=== PATIENT | female | born 1990 | race American Indian/Alaskan Native ===

== ENCOUNTER 2018-02-22 02:32 | Inpatient (IN) | payer OTHER ==
[2018-02-22] MEDS ORDERED: LACTATED RINGERS 1,000 ML ONE (04:00)
[2018-02-22] MEDS ORDERED: LACTATED RINGERS 1,000 ML IV ONE (04:18)
[2018-02-22] MEDS ORDERED: SUBLIMAZE IV ONE ×2 (04:18→07:35)
[2018-02-22] MEDS ORDERED: SUBLIMAZE ONE (04:20)
[2018-02-22] MEDS ORDERED: XYLOCAINE 2% INFILTRATI ONE (05:51)
[2018-02-22] MEDS ORDERED: BRETHINE IVP PRN (05:51)
[2018-02-22] MEDS ORDERED: BRETHINE SUB-Q PRN (05:51)
--- NOTE | 2018-02-22 05:59 | History and Physical Report ---
History of Present Illness Date of examination: 02/22/18 Date of admission: 02/22/2018 Chief complaint: Contractions/labor. History of present illness: 27 year old presents to L&D with complaint of regular contractions. Patient denies vaginal bleeding or leaking of fluid. Patient states she has received regular care at [facility]. No records are available. Previous section at term with her last baby 7 years ago ( patient states the C/S was done for abnormal heart rate tracing). Patient denies any complications with the current . Patient denies any health problems. She states the C/S 7 years ago was the only surgery she has ever had. Current medications: Vitamins. NKDA. Patient states she does not smoke cigarettes, drink alcohol, or use drugs. She states her EDC is 02/28/18. labs were drawn on admission. Past History Past Medical History: no pertinent history Past Surgical History: section [facility] History: gonorrhea (patient reports history of gonorrhea several months ago which was treated and cured). denies: abnormal PAP smear, chlamydia, hepatitis B, hepatitis C, herpes, HIV, syphilis, trichomonas Family/Genetic History: none Social history: lives with family, full code. denies: smoking, alcohol abuse, IV drug use - Obstetrical History Expected Date of Delivery: 02/28/18 Actual Gestation: 39 Week(s) 1 Day(s) : 3 Para: 1 Hx # Term Pregnancies: 2 Number of Pregnancies: 0 Spontaneous Abortions: 1 Induced : 0 Number of Living Children: 1 Medications and Allergies Allergies Allergy/AdvReac Type Severity Reaction Status Date / Time No Known Allergies Allergy Unverified 02/22/18 04:16 Active Meds: Active Medications Ephedrine Sulfate (Ephedrine Sulfate) 10 mg IV Q2M PRN PRN Reason: Hypotension Ampicillin Sodium (Polycillin/Ns 2 Gm/100 Ml) 2 gm in 100 mls @ 100 mls/hr IV ONCE ONE; Protocol Stop: 02/22/18 06:50 Lactated Ringer's (Lactated Ringers) 1,000 mls @ 125 mls/hr IV DIRECT BRADY Oxytocin/Sodium Chloride (Pitocin/Ns 20 Unit/1000ml Drip) 20 units in 1,000 mls @ 125 mls/hr IV DIRECT BRADY Ampicillin Sodium (Ampicillin/Ns 1 Gm/50 Ml) 1 gm in 50 mls @ 100 mls/hr IV Q4HR BRADY; Protocol Lidocaine (Xylocaine 2%) 20 ml INFILTRATI ONCE ONE Stop: 02/22/18 05:52 Terbutaline Sulfate (Brethine) 0.25 mg SUB-Q ONCE PRN PRN Reason: Hyperstimulation/Hypertonicity Terbutaline Sulfate (Brethine) 0.25 mg IVP ONCE PRN PRN Reason: Hyperstimulation/Hypertonicity Review of Systems All systems: negative (contractions) - Vital Signs Vital signs: Vital Signs Pulse Pulse Ox 81 97 02/22/18 02:53 02/22/18 02:53 Temp Pulse Resp BP Pulse Ox 73 18 97 02/22/18 03:13 02/22/18 04:30 02/22/18 03:13 - Physical Exam Cardiovascular: Regular rate, Normal S1, Normal S2 Lungs: Positive: Clear to auscultation Abdomen: Positive: normal appearance, soft. Negative: distention, tenderness, guarding, rigidity Genitourinary (Female): Positive: normal external genitalia, normal perenium. Negative: perineal/vulvar lesions Vagina: Positive: other (clear fluid leaking from vagina/spontaneous rupture of membranes at 05:18) Uterus: Positive: enlarged. Negative: tender Extremities: Positive: normal. Negative: tenderness - Obstetrical FHR: category 2 FHR comments: Normal baseline FHR, moderate variability, occasional variable FHR deceleration with rapid return to baseline. Uterine Contraction Monitor Mode: External Cervical Dilatation: 3 Cervical Effacement Percentage: 95 station: -2 Uterine Contraction Pattern: Regular Uterine Contraction Intensity: Moderate Results All other labs normal. Assessment and Plan A: at 39 weeks, 1 day gestation. Active labor. Spontaneous rupture of membranes. Unknown GBS due to no records available. P: Admit. GBS prophylaxis. Epidural if desired. Notified Dr. Iglesias of patient's exam and status and desire for TOLAC. Dr. Iglesias is en route to hospital. Continuous EFM.
[2018-02-22] MEDS ORDERED: PITOCin/NS 20 UNIT/1000ML DRIP 20 UNITS/1,000 ML BAG IV SCH (06:00)
[2018-02-22] MEDS ORDERED: POLYCILLIN/NS 2 GM/100 ML 2 GM/100 ML BAG IV ONE (06:00)
[2018-02-22] MEDS ORDERED: LACTATED RINGERS 1,000 ML IV SCH (06:00)
[2018-02-22 06:28] LABS: Hematocrit 38.8 % (30.3-42.9); Hemoglobin 13.4 gm/dl (10.1-14.3); Mean Corpuscular HGB Conc 35 % (30-34); Mean Corpuscular Hemoglobin 29 pg (28-32); Mean Corpuscular Volume 84 fl (79-97); Platelet Count 172 K/mm3 (140-440); Red Blood Count 4.64 M/mm3 (3.65-5.03); Red Cell Distribution Width 12.8 % (13.2-15.2)
[2018-02-22] MEDS ORDERED: ZOFRAN IV ONE (06:43)
[2018-02-22 07:09] LABS: Hepatitis C Virus Antibody Non-Reactive (NonReactive)
[2018-02-22] MEDS ORDERED: ZOFRAN IV PRN ×2 (07:36→10:06)
[2018-02-22 07:49] LABS: Rubella IgG Antibody Immune (Immune)
[2018-02-22] MEDS ORDERED: NARCAN 2 MG/2 ML IV PRN (08:18)
[2018-02-22] MEDS ORDERED: fentaNYL-BUPIV 2 MCG/ML-0.125% 200 MCG/100 ML BAG EPIDURAL SCH (09:00)
[2018-02-22] MEDS ORDERED: AMPICILLIN/NS 1 GM/50 ML 1 GM/50 ML BAG IV SCH (10:00)
[2018-02-22] MEDS ORDERED: DULCOLAX PR PRN (10:06)
[2018-02-22] MEDS ORDERED: BENADRYL PO PRN (10:06)
[2018-02-22] MEDS ORDERED: MILK OF MAGNESIA PO PRN (10:06)
[2018-02-22] MEDS ORDERED: TUCKS PAD TP PRN (10:06)
[2018-02-22] MEDS ORDERED: PHENERGAN PO PRN (10:06)
[2018-02-22] MEDS ORDERED: TYLENOL PO PRN (10:06)
[2018-02-22] MEDS ORDERED: LANSINOH TP PRN (10:06)
[2018-02-22] MEDS ORDERED: PHENERGAN PR PRN (10:06)
[2018-02-22] MEDS ORDERED: SODIUM CHLORIDE FLUSH SYRINGE 10 ML IV NR (11:00)
[2018-02-22] MEDS: MOTRIN PO SCH ×3 (11:07→23:09)
--- NOTE | 2018-02-22 12:08 | Procedure Note ---
OB Delivery Note - Delivery Date of Delivery: 02/22/18 Surgeon: ALEXSANDER DUNBAR Estimated blood loss: other (250) - Vaginal Delivery presentation: vertex Delivery position: OA Intrapartum events: other(please specify) () Delivery induction: none Delivery monitor: external FHT, external uterine Route of delivery: Delivery placenta: spontaneous Delivery cord: 3 umbilical vessels Episiotomy: none Delivery laceration: none Anesthesia: epidural Delivery comments: Spontaneous vaginal delivery of liveborn male weighing 6 lb. 13 oz. over intact perineum with apgars of 8/9. Nuchal cord times 1; easily reduced. Epidural anesthesia. Baby placed immediately on maternal abdomen after . Spontaneous cry and respirations. Spontaneous delivery of intact placenta and membranes by barrow mechanism. EBL 250 ml. Pitocin to IV fluids after delivery of placenta. Vaginal sweep negative. Sponge count correct. No lacerations noted. Mother and baby stable in birthing room.
[2018-02-22] MEDS: NORCO 5/325 PO PRN ×3 (12:18→23:11)
[2018-02-22 21:46] LABS: Hematocrit 33.2 % (30.3-42.9); Hemoglobin 11.5 gm/dl (10.1-14.3)
[2018-02-23] MEDS: MOTRIN PO SCH ×4 (05:58→23:35)
[2018-02-23] MEDS: NORCO 5/325 PO PRN ×3 (08:41→21:56)
--- NOTE | 2018-02-23 19:50 | Progress Note ---
Assessment and Plan A: day 1 S/P spontaneous vaginal delivery. P: Discharge patient home tomorrow AM. Advised patient to continue taking iron supplement and vitamin (which she has at home) and to continue Motrin for cramping. Discussed discharge instructions and warning signs in detail with patient. Advised patient to follow up at OB office in 6 weeks. Subjective - Subjective Date of service: 02/23/18 Principal diagnosis: day 1 S/P Interval history: day 1 S/P . Doing well. Patient is bottlefeeding. Patient reports small amount of lochia. She is voiding without difficulty. She is ambulating well and passing gas. She is tolerating a regular diet without nausea or vomiting. Patient denies headache, chest pain, cough, shortness of breath, dizziness, abdominal pain, leg pain, or heavy vaginal bleeding. Patient desires discharge tomorrow AM. Patient reports: appetite normal, voiding normally, pain well controlled, flatus , ambulating normally : doing well Objective - Vital Signs Latest vital signs: Vital Signs Temp Pulse Resp BP BP Pulse Ox 02/23/18 16:17 98.0 F 66 18 135/80 02/23/18 14:33 20 02/23/18 11:46 18 02/23/18 08:41 18 02/23/18 08:12 98.2 F 72 18 124/86 02/23/18 00:47 97.9 F 18 95/43 02/23/18 00:46 68 98 02/22/18 20:28 98.4 F 60 16 109/53 98 Intake and Output 02/23/18 02/23/18 02/23/18 07:59 15:59 23:59 Intake Total 480 Balance 480 Intake: Oral 120 Intake, Free Water 360 Other: Total, Intake Amount 120 # Voids Void 3 - Exam Cardiovascular: Present: Regular rate, Normal S1, Normal S2 Lungs: Present: Clear to auscultation Abdomen: Present: normal appearance, soft. Absent: distention, tenderness, guarding, rigidity Uterus: Present: normal, firm, fundal height below umbilicus. Absent: bogginess , tenderness Extremities: Present: normal, edema (mild bilateral pedal edema). Absent: tenderness
--- NOTE | 2018-02-23 19:57 | Discharge Summary ---
Providers - Providers Date of Admission: 02/22/18 05:51 Date of discharge: 02/23/18 Attending physician: SAMUEL MURDOCK MD None Primary care physician: SAMUEL MURDOCK MD Hospitalization Reason for admission: active labor Delivery: , Episiotomy: none Laceration: none Other procedures: none complications: none Discharge diagnosis: IUP at term delivered [place] baby: male Pertinent studies: Labs Hospital course: Normal hospital course. Condition at discharge: Good Disposition: DC-01 TO HOME OR SELFCARE - Discharge Diagnoses (1) Term delivered Status: Acute Plan - Provider Discharge Summary Activity: routine, no sex for 6 weeks, no heavy lifting 4 weeks, no strenuous exercise Diet: routine Instructions: routine Additional instructions: Call your doctor immediately for: * Fever > 100.5 * Heavy vaginal bleeding ( >1 pad per hour) * Severe persistent headache * Shortness of breath * Reddened, hot, painful area to leg or breast * Drainage or odor from incision. * Keep incision clean and dry at all times and follow doctor's instructions regarding bathing/showering - Follow up plan Follow up: SAMUEL MURDOCK MD [Primary Care Provider] - 6 Weeks
[2018-02-24] MEDS: MOTRIN PO SCH (07:30)
[2018-02-24] MEDS: NORCO 5/325 PO PRN (08:58)
[2018-02-24 13:18] VITALS: BP 126/70
== END 2018-02-24 14:16 | disposition home or self-care (01) | DRG 775 ==
LOC: TRG 02:32 → LD 05:51 → TRG 05:51 → OB 11:49
PROVIDERS: ADMIT Obstetrics & Gynecology; ATTEND Obstetrics & Gynecology
PROC: 10E0XZZ Delivery of Products of Conception, External Approach (ICD-10-PCS; principal; 2018-02-22)
PROC: 3E0R3BZ Introduction of Anesthetic Agent into Spinal Canal, Percutaneous Approach (ICD-10-PCS; 2018-02-22)
PROC: 00HU33Z Insertion of Infusion Device into Spinal Canal, Percutaneous Approach (ICD-10-PCS; 2018-02-22)
DX: O69.81X0 Labor and delivery complicated by cord around neck, without compression, not applicable or unspecified (principal); O76 Abnormality in fetal heart rate and rhythm complicating labor and delivery; Z3A.39 39 weeks gestation of pregnancy; Z37.0 Single live birth
CPT/HCPCS: 36415; 83036; 85014; 85018; 85027; 86592; 86706; 86762; 86803; 86850; 86900; 86901; 87806; J0290; J2405; J2590; J3010; J7120